=== PATIENT | female | born 1970 | race Caucasian/White ===

== ENCOUNTER 2016-11-07 22:43 | Emergency (ER) | payer BC ==
[~2016-11-07] VITALS: Ht 157.4 cm; Wt 81.6 kg
[~2016-11-07 22:43] MED LIST: ADVIL200 M1 PO; AMOXICILLIN500 MG PO; ATIVAN1 MG PO; BACTROBAN OINT22 GM PO; BIAXIN500 MG PO; BP MEDS; CATAFLAM50 MG PO; CIPRO500 MG PO; CLARITIN10 MG PO; FIORICET 325 MG1 TAB PO; FLEXERIL10 MG PO; FLEXERIL5 MG PO; FLONASE0.05 MG/AC NS; Fioricet 325 MG1 TAB PO; HYDR25T PO; HYDROCODONE BIT1 T11 PO; IMITREX25 MG PO; INDERAL LA60 M1 PO; KEFLEX500 MG PO; MEDROL DOSEPAK4 MG PO; MIDRIN (DURADR1 CAP PO; MOTRIN800 MG PO; Motrin,Rufen800 MG PO; NORVASC10 MG PO; PHENERGAN25 M1 PO; PREDNISONE50 MG PO; PROVENTIL0.09 MG/AC IH; ROBAXIN500 M1 PO; ROBAXIN500 MG PO; TORADOL10 MG PO; VICODIN 5-3001 EACH PO; VICODIN 5/500 505 MG PO; VICODIN 500 MG-1 TAB PO; VICODIN ES 7501 TAB PO; VICODIN1 TAB PO; ZESTRIL40 MG PO; ZOFRAN ODT4 MG PO; ZOFRAN ODT4 MG SL
[2016-11-08] MEDS ORDERED: Motrin,Rufen800 MG PO (00:19)
[2016-11-08] MEDS ORDERED: CYCLOBENZAPRINE5 M3 PO (00:19)
== END 2016-11-08 03:07 | disposition home or self-care (01) ==
LOC: ED 22:43
DX: S16.1XXA Strain of muscle, fascia and tendon at neck level, initial encounter (principal); R51 Headache; F17.200 Nicotine dependence, unspecified, uncomplicated; Z88.8 Allergy status to other drugs, medicaments and biological substances; X58.XXXA Exposure to other specified factors, initial encounter; Y93.89 Activity, other specified; Y92.9 Unspecified place or not applicable; Y99.9 Unspecified external cause status

== ENCOUNTER 2018-01-21 20:05 | Emergency (ER) | payer BC ==
[~2018-01-21] VITALS: Ht 157.4 cm; Wt 81.6 kg
[~2018-01-21 20:05] MED LIST changes: +CYCLOBENZAPRINE5 M3 PO
[2018-01-21] MEDS ORDERED: AMOXICILLIN500 M2 PO (20:56)
== END 2018-01-21 21:02 | disposition home or self-care (01) ==
LOC: ED 20:05
DX: J02.9 Acute pharyngitis, unspecified (principal); R19.7 Diarrhea, unspecified; Z88.8 Allergy status to other drugs, medicaments and biological substances; Z79.899 Other long term (current) drug therapy; Z98.890 Other specified postprocedural states

== ENCOUNTER 2019-01-13 21:52 | Emergency (ER) | payer BC ==
[~2019-01-13] VITALS: Ht 157.4 cm; Wt 86.2 kg
[~2019-01-13 21:52] MED LIST changes: +AMOXICILLIN500 M2 PO
== END 2019-01-13 22:57 | disposition home or self-care (01) ==
LOC: ED 21:52
DX: M25.531 Pain in right wrist (principal); Z79.899 Other long term (current) drug therapy; Z88.8 Allergy status to other drugs, medicaments and biological substances

== ENCOUNTER 2019-03-06 13:08 | Inpatient (IN) | payer BC ==
[~2019-03-06] VITALS: Ht 160 cm; Wt 83.6 kg
[2019-03-06 13:11] VITALS: BP 135/80
[2019-03-06] MEDS ORDERED: AUGMENTIN 875875 MG PO (13:23)
[2019-03-06] MEDS ORDERED: PREDNISONE10 MG PO (13:23)
[2019-03-06] MEDS ORDERED: BACLOFEN PO (13:23)
[2019-03-06 14:46] LABS: BASO # 0.1 10*3/uL (0.0-0.1); BASO % 0.8 % (0.0-1.0); EOS # 0.1 10*3/uL (0.0-0.4); EOS % 0.9 % (1.0-4.0); HEMATOCRIT 41.9 % (37.0-47.0); HEMOGLOBIN 14.4 g/dl (12.0-16.0); LYMPH # 3.5 10*3/uL (1.3-4.4); MEAN CELL VOLUME 105.3 fl (81.0-99.0); MEAN CORPUSCULAR HGB 36.2 pg (27.0-31.0); MEAN CORPUSCULAR HGB CONC 34.4 g/dl (33.0-37.0); MEAN PLATELET VOLUME 9.1 fl (9.6-12.3); MONO # 0.7 10*3/uL (0.1-1.0); MONO % 5.8 % (3.0-9.0); NEUT # 6.8 10*3/uL (2.3-7.9); NEUT % 60.8 % (47.0-73.0); PLATELET COUNT AUTOMATED 272 10*3/uL (130-400); RED BLOOD COUNT 3.98 10*6/uL (4.10-5.10); RED CELL DISTRI WIDTH 13.8 % (0-14.5); WHITE BLOOD COUNT 11.2 10*3/uL (4.8-10.8)
[2019-03-06 14:57] LABS: ACT PARTIAL THROMBO TIME 23.9 SECONDS (20.0-32.1); INTERNATIONAL NORM RATIO 0.9 (2.0-3.5)
[2019-03-06 15:04] LABS: ALBUMIN 3.1 gm/dl (3.1-4.5); ALKALINE PHOSPHATASE 103 U/L (45-117); BUN 10 mg/dl (7-24); CHLORIDE 97 mmol/L (98-107); CREATININE 0.68 mg/dL (0.55-1.02); LIPASE 243 U/L (73-393); SGOT/AST 109 IU/L (3-35); SGPT/ALT 70 U/L (12-78); SODIUM 133 mmol/L (136-145)
[2019-03-06 15:05] LABS: TROPONIN I < 0.015 ng/ml (<0.045)
--- NOTE | 2019-03-06 15:06 | NUR ---
ATIVAN IV GIVEN FOR PT NERVOUSNESS,SHAKINESS.--ELIZABET KING RN
--- NOTE | 2019-03-06 15:06 | NUR ---
NOTIFIED BY LAB PTS LACTIC ACID 3.0. DR YUNG NOTIFIED.
[2019-03-06 15:17] LABS: BILIRUBIN 2+ (NEGATIVE); BLOOD NEGATIVE (NEGATIVE); CLARITY CLOUDY (CLEAR); COLOR ORANGE (YELLOW); GLUCOSE TRACE (NEGATIVE); KETONE TRACE (NEGATIVE); LEUKO ESTERASE NEGATIVE (NEGATIVE); NITRITE POSITIVE (NEGATIVE); PH 5.5 (5.0-9.0); SPECIFIC GRAVITY 1.025 (1.005-1.030)
[2019-03-06 15:27] LABS: BACTERIA TRACE; EPITHELIAL CELLS 0-2; WBC 0-2 wbc/hpf (0-5)
[2019-03-06 17:18] VITALS: BP 119/74
--- NOTE | 2019-03-06 17:23 | NUR ---
NOTIFIED BY LAB PT LACTIC ACID 2.3. DR AGA LOPEZFIED.
--- NOTE | 2019-03-06 17:28 | NUR ---
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 ER DIRECTOR BEN WENT IN TO SPEAK WITH PT AND SHE HAS AGREE TO STAY HERE AND NOT SMOKE.--ELIZABET KING RN
--- NOTE | 2019-03-06 18:10 | NUR ---
Time: 1809 A 48 year old admitted to under services of EDD SIMON DO, Pt. arrived via stretcher from ER. Chief complaint: DIARRHEA FOR A LONG TIME. MEY GUZMÁN
[2019-03-06 18:12] VITALS: BP 140/77
--- NOTE | 2019-03-06 18:35 | NUR ---
Dr. Lerma was notified of consult and orders were recieved.
--- NOTE | 2019-03-06 19:55 | NUR ---
DR. MARTÍNEZ NOTIFIED OF CRITITCAL LACTIC ACID LEVEL 0F 4.0.
[2019-03-06 20:00] VITALS: BP 119/86
--- NOTE | 2019-03-06 21:00 | NUR ---
PATIENT MEDICATED WITH TYLENOL AND RESTORIL PER PRN ORDER FOR C/O PAIN AND INABILITY TO SLEEP. SEE EMAR. REINFORCED USE OF CALL LIGHT
--- NOTE | 2019-03-06 21:43 | NUR ---
DR. MARTÍNEZ NOTIFIED OF CRITICAL LACTIC ACID OF 2.4.
[2019-03-07] VITALS: BP 114/77
[2019-03-07 06:51] LABS: BASO # 0.1 10*3/uL (0.0-0.1); BASO % 0.8 % (0.0-1.0); EOS # 0.2 10*3/uL (0.0-0.4); EOS % 1.7 % (1.0-4.0); HEMATOCRIT 37.5 % (37.0-47.0); HEMOGLOBIN 12.8 g/dl (12.0-16.0); LYMPH % 42.3 % (27.0-41.0); MEAN CELL VOLUME 106.5 fl (81.0-99.0); MEAN CORPUSCULAR HGB 36.4 pg (27.0-31.0); MEAN CORPUSCULAR HGB CONC 34.1 g/dl (33.0-37.0); MEAN PLATELET VOLUME 9.2 fl (9.6-12.3); MONO # 0.4 10*3/uL (0.1-1.0); MONO % 4.6 % (3.0-9.0); NEUT # 4.7 10*3/uL (2.3-7.9); NEUT % 49.9 % (47.0-73.0); PLATELET COUNT AUTOMATED 248 10*3/uL (130-400); RED BLOOD COUNT 3.52 10*6/uL (4.10-5.10); WHITE BLOOD COUNT 9.5 10*3/uL (4.8-10.8)
[2019-03-07 07:22] LABS: ALBUMIN 2.7 gm/dl (3.1-4.5); BUN 10 mg/dl (7-24); CHLORIDE 99 mmol/L (98-107); CREATININE 0.57 mg/dL (0.55-1.02); POTASSIUM 3.1 mmol/L (3.5-5.1); SGOT/AST 65 IU/L (3-35); SGPT/ALT 54 U/L (12-78); SODIUM 134 mmol/L (136-145)
[2019-03-07 07:25] LABS: ALKALINE PHOSPHATASE 82 U/L (45-117); CHOLESTEROL 210 mg/dL (<200); HDL CHOLESTEROL 68 mg/dl (40-60); LDL CHOLESTEROL 122 mg/dL (9-159); PHOSPHOROUS 3.9 mg/dL (2.5-4.9); TRIGLYCERIDES 102 mg/dl (<150); VLDL CHOLESTEROL 20 mg/dL (6-40)
--- NOTE | 2019-03-07 07:53 | NUR ---
Awake and alert. States shoulders are tense. Requesting just 1 more shot of morphine. Suggested to request from Dr. Mercer on rounding, pt. is ok with this.
--- NOTE | 2019-03-07 07:57 | NUR ---
Dr. Gan aware of hypokalemia.
[2019-03-07 08:00] VITALS: BP 126/87
--- NOTE | 2019-03-07 09:00 | NUR ---
Construction Executive in to talk to patient. Patient states lives at home with mom. There are few steps in the home. Physician: shayna sheffield Pharmacy: [facility] health services: none Patient's level of ADLs: INDEPENDENT Patient has working utilities: all working DME: none Follow-up physician's appointment after d/c: will be made by hospitalist nurse director upon discharge Does patient want to access PORTAL?: no Discharge plan discussed with patient, mom present, she states she lives at home with her mom, she is indepenedent in adls and ambulation, works, drives, she will return home when medically stable and denies any home needs. KILO SANTOS
[2019-03-07 12:00] VITALS: BP 110/77
[2019-03-07 16:00] VITALS: BP 108/72
--- NOTE | 2019-03-07 17:35 | NUR ---
Mother and pt. both notified of OR time. Pt. voiced concern over time frame stating going that long w/o food will cause a migraine.
[2019-03-07 20:00] VITALS: BP 114/72
[2019-03-08] VITALS (7 sets, daily range): BP systolic 110–143; BP diastolic 69–99
--- NOTE | 2019-03-08 00:49 | NUR ---
PATIENT MEDICATED WITH MORPHINE PER ONE TIME ORDER FOR C/O HEADACHE /MIGRAINE. RATED PAIN A 9/10 WITH 10 BEING THE WORST. SEE EMAR. REINFORCED USE OF CALL LIGHT.
--- NOTE | 2019-03-08 06:15 | NUR ---
FLEETS ENEMA GIVEN. TAP WATER ENEMA GIVEN. RESULTS CLEAR LIGHT YELLOW LIQUID.
[2019-03-08 06:16] LABS: BASO # 0.1 10*3/uL (0.0-0.1); BASO % 0.7 % (0.0-1.0); EOS # 0.2 10*3/uL (0.0-0.4); HEMATOCRIT 38.2 % (37.0-47.0); HEMOGLOBIN 12.7 g/dl (12.0-16.0); LYMPH # 3.8 10*3/uL (1.3-4.4); LYMPH % 38.1 % (27.0-41.0); MEAN CELL VOLUME 106.7 fl (81.0-99.0); MEAN CORPUSCULAR HGB 35.5 pg (27.0-31.0); MEAN CORPUSCULAR HGB CONC 33.2 g/dl (33.0-37.0); MEAN PLATELET VOLUME 9.2 fl (9.6-12.3); MONO # 0.6 10*3/uL (0.1-1.0); MONO % 6.1 % (3.0-9.0); NEUT # 5.3 10*3/uL (2.3-7.9); NEUT % 52.3 % (47.0-73.0); PLATELET COUNT AUTOMATED 243 10*3/uL (130-400); RED BLOOD COUNT 3.58 10*6/uL (4.10-5.10); RED CELL DISTRI WIDTH 13.8 % (0-14.5); WHITE BLOOD COUNT 10.1 10*3/uL (4.8-10.8)
[2019-03-08 06:40] LABS: ALBUMIN 2.8 gm/dl (3.1-4.5); BUN 4 mg/dl (7-24); CHLORIDE 101 mmol/L (98-107); POTASSIUM 2.9 mmol/L (3.5-5.1); SODIUM 136 mmol/L (136-145)
[2019-03-08 06:44] LABS: ALKALINE PHOSPHATASE 83 U/L (45-117); CREATININE 0.44 mg/dL (0.55-1.02); PHOSPHOROUS 3.7 mg/dL (2.5-4.9); SGOT/AST 58 IU/L (3-35); SGPT/ALT 54 U/L (12-78); TOTAL PROTEIN 5.9 gm/dL (6.4-8.2)
--- NOTE | 2019-03-08 09:00 | NUR ---
case management visits with patient, she will return home when medically stable she will be having testing done today, no other needs at this time
--- NOTE | 2019-03-08 11:25 | NUR ---
OFF FLOOR FOR MRI. IV ATIVEN GIVEN AT THIS TIME FOR CLAUSTROPHOBIA. SEE MAR.
[2019-03-08] MEDS ORDERED: NATURE'S BLEND F1 MG PO (15:19)
[2019-03-08] MEDS ORDERED: VITAMIN D5000 UNI1 PO (15:19)
[2019-03-08] MEDS ORDERED: CREON 3000 PO (16:31)
--- NOTE | 2019-03-08 16:47 | NUR ---
REFUSED POTASSIUM. EMXPLAINED IMPORTANCE/EDUCATED ON NEED. STILL REFUSED "BECAUSE THE DOCTORS SAID I WAS DISCHARGED."
--- NOTE | 2019-03-08 18:10 | NUR ---
Discharge instructions reviewed with patient/family. Patient receptive and verbalizes understanding. Follow-up care arranged. Written instructions given to patient/family. IRENE MOSHER
== END 2019-03-08 18:10 | disposition home or self-care (01) | DRG 690 ==
LOC: ED 13:08 → 4E 16:55 → EDHOLD 16:55 → 4E 17:22
PROVIDERS: Emergency Medicine; Internal Medicine; ADMIT Internal Medicine
PROC: 0DBM8ZX Excision of Descending Colon, Via Natural or Artificial Opening Endoscopic, Diagnostic (ICD-10-PCS; principal; 2019-03-08)
DX: N39.0 Urinary tract infection, site not specified (principal); E87.2 Acidosis; E87.1 Hypo-osmolality and hyponatremia; R19.7 Diarrhea, unspecified; D72.829 Elevated white blood cell count, unspecified; E87.8 Other disorders of electrolyte and fluid balance, not elsewhere classified; D75.89 Other specified diseases of blood and blood-forming organs; R73.9 Hyperglycemia, unspecified; F10.20 Alcohol dependence, uncomplicated; R74.0 Nonspecific elevation of levels of transaminase and lactic acid dehydrogenase [LDH]; E66.9 Obesity, unspecified; I10 Essential (primary) hypertension; G43.909 Migraine, unspecified, not intractable, without status migrainosus; Z82.49 Family history of ischemic heart disease and other diseases of the circulatory system; Z80.8 Family history of malignant neoplasm of other organs or systems; Z79.899 Other long term (current) drug therapy; Z72.0 Tobacco use; Z88.8 Allergy status to other drugs, medicaments and biological substances; Z68.32 Body mass index [BMI] 32.0-32.9, adult

== ENCOUNTER → 2020-03-10 | Outpatient (CLI) | payer BC ==
[~2020-03-10] MED LIST changes: +AUGMENTIN 875875 MG PO; +BACLOFEN PO; +CREON 3000 PO; +NATURE'S BLEND F1 MG PO; +PREDNISONE10 MG PO; +VITAMIN D5000 UNI1 PO
== END | disposition home or self-care (01) ==
LOC: COVID19 11:53
DX: Z20.828 Contact with and (suspected) exposure to other viral communicable diseases (principal)

== ENCOUNTER 2020-10-06 18:24 | Emergency (ER) | payer BC ==
[~2020-10-06] VITALS: Wt 90.7 kg
== END 2020-10-06 20:31 | disposition left against medical advice (07) ==
LOC: ED 18:24
DX: G43.909 Migraine, unspecified, not intractable, without status migrainosus (principal); Z53.21 Procedure and treatment not carried out due to patient leaving prior to being seen by health care provider

== ENCOUNTER 2021-01-08 03:24 | Emergency (ER) | payer BC ==
[~2021-01-08] VITALS: Ht 152.4 cm; Wt 90.7 kg
== END 2021-01-08 04:27 | disposition home or self-care (01) ==
LOC: ED 03:24
DX: R51.9 Headache, unspecified (principal); R21 Rash and other nonspecific skin eruption; M54.2 Cervicalgia; Z88.8 Allergy status to other drugs, medicaments and biological substances; Z79.899 Other long term (current) drug therapy; Z87.891 Personal history of nicotine dependence

== ENCOUNTER 2021-02-04 17:45 | Emergency (ER) | payer BC ==
[2021-02-05] MEDS ORDERED: HYDROCODONE-AC1 EAC1 PO (01:14)
== END 2021-02-05 01:44 | disposition home or self-care (01) ==
LOC: ED 17:45
DX: S82.831A Other fracture of upper and lower end of right fibula, initial encounter for closed fracture (principal); F17.200 Nicotine dependence, unspecified, uncomplicated; Z88.8 Allergy status to other drugs, medicaments and biological substances; Z79.899 Other long term (current) drug therapy; W18.40XA Slipping, tripping and stumbling without falling, unspecified, initial encounter; Y93.89 Activity, other specified; Y92.89 Other specified places as the place of occurrence of the external cause; Y99.8 Other external cause status

== ENCOUNTER → 2021-04-22 | Outpatient (CLI) | payer BC ==
[~2021-04-22] MED LIST changes: +HYDROCODONE-AC1 EAC1 PO
== END | disposition home or self-care (01) ==
LOC: COVID19 15:36
PROVIDERS: ATTEND Internal Medicine
DX: Z11.52 Encounter for screening for COVID-19 (principal)

== ENCOUNTER 2021-08-26 02:43 | Emergency (ER) | payer BC ==
[~2021-08-26] VITALS: Ht 152.4 cm; Wt 95.3 kg
== END 2021-08-26 03:28 | disposition home or self-care (01) ==
LOC: ED 02:43
DX: G43.909 Migraine, unspecified, not intractable, without status migrainosus (principal); Z88.8 Allergy status to other drugs, medicaments and biological substances; Z79.899 Other long term (current) drug therapy; Z98.890 Other specified postprocedural states

== ENCOUNTER → 2022-05-20 | Outpatient (CLI) | payer BC | END | disposition home or self-care (01) | LOC: COVID19 09:19 | PROVIDERS: ATTEND Internal Medicine | DX: Z20.822 Contact with and (suspected) exposure to COVID-19 (principal) ==

== ENCOUNTER 2022-06-08 00:55 | Emergency (ER) | payer BC ==
[~2022-06-08] VITALS: Ht 157.4 cm; Wt 104.3 kg
[2022-06-08] MEDS ORDERED: HYDROCODONE-AC1 EACH PO (01:09)
== END 2022-06-08 05:03 | disposition home or self-care (01) ==
LOC: ED 00:55
DX: G43.909 Migraine, unspecified, not intractable, without status migrainosus (principal); Z88.8 Allergy status to other drugs, medicaments and biological substances; I10 Essential (primary) hypertension; E66.9 Obesity, unspecified; Z68.34 Body mass index [BMI] 34.0-34.9, adult; Z98.890 Other specified postprocedural states; F17.200 Nicotine dependence, unspecified, uncomplicated

== ENCOUNTER 2022-08-03 21:24 | Emergency (ER) | payer BC ==
[~2022-08-03] VITALS: Ht 152.4 cm; Wt 99.6 kg
[~2022-08-03 21:24] MED LIST changes: +HYDROCODONE-AC1 EACH PO
== END 2022-08-03 22:46 | disposition home or self-care (01) ==
LOC: ED 21:24
DX: G43.909 Migraine, unspecified, not intractable, without status migrainosus (principal); Z88.8 Allergy status to other drugs, medicaments and biological substances; Z79.899 Other long term (current) drug therapy; F17.200 Nicotine dependence, unspecified, uncomplicated

== ENCOUNTER 2022-08-31 22:26 | Emergency (ER) | payer BC ==
[~2022-08-31] VITALS: Ht 157.4 cm; Wt 88.5 kg
== END 2022-09-01 01:25 | disposition home or self-care (01) ==
LOC: ED 22:26
DX: G43.909 Migraine, unspecified, not intractable, without status migrainosus (principal); H53.141 Visual discomfort, right eye; I10 Essential (primary) hypertension; R73.9 Hyperglycemia, unspecified; E87.8 Other disorders of electrolyte and fluid balance, not elsewhere classified; E87.1 Hypo-osmolality and hyponatremia; D64.9 Anemia, unspecified; Z98.890 Other specified postprocedural states; Z88.8 Allergy status to other drugs, medicaments and biological substances; Z87.891 Personal history of nicotine dependence

== ENCOUNTER 2022-10-04 21:57 | Emergency (ER) | payer BC ==
[~2022-10-04] VITALS: Ht 162.5 cm; Wt 95.3 kg
== END 2022-10-05 03:15 | disposition home or self-care (01) ==
LOC: ED 21:57
DX: M54.41 Lumbago with sciatica, right side (principal); M79.604 Pain in right leg; R73.9 Hyperglycemia, unspecified; E87.8 Other disorders of electrolyte and fluid balance, not elsewhere classified; E87.1 Hypo-osmolality and hyponatremia; D64.9 Anemia, unspecified; G43.909 Migraine, unspecified, not intractable, without status migrainosus; I10 Essential (primary) hypertension; Z88.8 Allergy status to other drugs, medicaments and biological substances; Z98.890 Other specified postprocedural states

== ENCOUNTER 2022-11-16 19:25 | Emergency (ER) | payer BC ==
[~2022-11-16] VITALS: Ht 162.5 cm; Wt 102.1 kg
[2022-11-16] MEDS ORDERED: METHOCARBAMOL500 M1 PO (22:00)
[2022-11-16] MEDS ORDERED: PREDNISONE20 M1 PO (22:00)
== END 2022-11-16 22:15 | disposition home or self-care (01) ==
LOC: ED 19:25
DX: M54.31 Sciatica, right side (principal); M79.604 Pain in right leg; I10 Essential (primary) hypertension; G43.909 Migraine, unspecified, not intractable, without status migrainosus; Z88.8 Allergy status to other drugs, medicaments and biological substances; Z98.890 Other specified postprocedural states; Z87.891 Personal history of nicotine dependence

== ENCOUNTER 2022-12-16 19:48 | Emergency (ER) | payer BC ==
[~2022-12-16] VITALS: Ht 152.4 cm; Wt 97.5 kg
[~2022-12-16 19:48] MED LIST changes: +METHOCARBAMOL500 M1 PO; +PREDNISONE20 M1 PO
[2022-12-16] MEDS ORDERED: CYCLOBENZAPRINE10 MG PO (20:32)
[2022-12-16] MEDS ORDERED: PREDNISONE50 MG PO (20:32)
== END 2022-12-16 20:48 | disposition home or self-care (01) ==
LOC: ED 19:48
DX: M54.50 Low back pain, unspecified (principal); F17.200 Nicotine dependence, unspecified, uncomplicated; I10 Essential (primary) hypertension; Z88.8 Allergy status to other drugs, medicaments and biological substances; Z79.899 Other long term (current) drug therapy; Z98.890 Other specified postprocedural states

== ENCOUNTER 2023-01-27 13:21 | Emergency (ER) | payer OTHER, BC ==
[~2023-01-27] VITALS: Wt 97.5 kg
[~2023-01-27 13:21] MED LIST changes: +CYCLOBENZAPRINE10 MG PO
[2023-01-27] MEDS ORDERED: CYCLOBENZAPRINE10 MG PO (14:49)
== END 2023-01-27 14:59 | disposition home or self-care (01) ==
LOC: ED 13:21
DX: S43.401A Unspecified sprain of right shoulder joint, initial encounter (principal); S63.501A Unspecified sprain of right wrist, initial encounter; I10 Essential (primary) hypertension; G43.909 Migraine, unspecified, not intractable, without status migrainosus; Z88.8 Allergy status to other drugs, medicaments and biological substances; Z98.890 Other specified postprocedural states; W19.XXXA Unspecified fall, initial encounter; Y93.89 Activity, other specified; Y92.89 Other specified places as the place of occurrence of the external cause; Y99.8 Other external cause status

== ENCOUNTER 2023-03-18 00:23 | Emergency (ER) | payer BC ==
[~2023-03-18] VITALS: Ht 157.4 cm; Wt 97.5 kg
== END 2023-03-18 01:02 | disposition home or self-care (01) ==
LOC: ED 00:23
DX: Z48.00 Encounter for change or removal of nonsurgical wound dressing (principal); I10 Essential (primary) hypertension; G43.909 Migraine, unspecified, not intractable, without status migrainosus; Z88.8 Allergy status to other drugs, medicaments and biological substances; Z98.890 Other specified postprocedural states

== ENCOUNTER 2023-08-05 22:44 | Emergency (ER) | payer BC ==
[~2023-08-05] VITALS: Ht 160 cm; Wt 113.4 kg
[2023-08-05] MEDS ORDERED: Dexamethasone Sodium Phospha 20 MG/5 ML VIAL IM ONE (23:25)
[2023-08-05] MEDS ORDERED: Ketorolac Tromethamine 60 MG/2 ML VIAL IM ONE (23:25)
[2023-08-06] MEDS ORDERED: CYCLOBENZAPRINE5 M3 PO (00:33)
[2023-08-06] MEDS ORDERED: MELOXICAM15 MG PO (00:33)
== END 2023-08-06 00:38 | disposition home or self-care (01) ==
LOC: ED 22:44
DX: M54.9 Dorsalgia, unspecified (principal); I10 Essential (primary) hypertension; G43.909 Migraine, unspecified, not intractable, without status migrainosus; Z88.8 Allergy status to other drugs, medicaments and biological substances; Z98.890 Other specified postprocedural states; F17.200 Nicotine dependence, unspecified, uncomplicated

== ENCOUNTER 2024-01-17 16:00 | Emergency (ER) | payer BC ==
[~2024-01-17 16:00] MED LIST changes: +MELOXICAM15 MG PO
[2024-01-17 17:09] LABS: BASO # 0.1 10*3/uL (0.0-0.1); BASO % 0.9 % (0.0-1.0); EOS # 0.2 10*3/uL (0.0-0.4); EOS % 1.4 % (1.0-4.0); HEMATOCRIT 46.3 % (37.0-47.0); LYMPH % 28.4 % (27.0-41.0); MEAN CELL VOLUME 95.5 fl (81.0-99.0); MEAN CORPUSCULAR HGB 30.7 pg (27.0-31.0); MEAN CORPUSCULAR HGB CONC 32.2 g/dl (33.0-37.0); MEAN PLATELET VOLUME 8.9 fl (9.6-12.3); MONO # 0.8 10*3/uL (0.1-1.0); MONO % 5.9 % (3.0-9.0); NEUT # 8.6 10*3/uL (2.3-7.9); PLATELET COUNT AUTOMATED 370 10*3/uL (130-400); RED BLOOD COUNT 4.85 10*6/uL (4.10-5.10); RED CELL DISTRI WIDTH 14.6 % (0-14.5); WHITE BLOOD COUNT 13.9 10*3/uL (4.8-10.8)
[2024-01-17 17:34] LABS: ALKALINE PHOSPHATASE 102 U/L (46-116); BUN 10 mg/dl (9-23); CHLORIDE 108 mmol/L (98-107); POTASSIUM 4.2 mmol/L (3.4-5.1); SGPT/ALT 11 U/L (5-49); TOTAL PROTEIN 6.9 gm/dL (6.0-8.0)
[2024-01-17] MEDS ORDERED: Ketorolac Tromethamine 60 MG/2 ML VIAL IM ONE (17:40)
[2024-01-17] MEDS ORDERED: Cyclobenzaprine Hydrochlorid 10 MG TAB PO ONE (17:45)
== END 2024-01-17 18:49 | disposition home or self-care (01) ==
LOC: ED 16:00
DX: G89.29 Other chronic pain (principal); M54.6 Pain in thoracic spine; I10 Essential (primary) hypertension; G43.909 Migraine, unspecified, not intractable, without status migrainosus; F17.200 Nicotine dependence, unspecified, uncomplicated; Z88.8 Allergy status to other drugs, medicaments and biological substances; Z98.890 Other specified postprocedural states

== ENCOUNTER 2024-04-12 18:07 | Emergency (ER) | payer OTHER, BC ==
[~2024-04-12] VITALS: Ht 152.4 cm; Wt 117.9 kg
[2024-04-12] MEDS ORDERED: DIAZEPAM 5 MG TAB PO ONE (18:15)
[2024-04-12] MEDS ORDERED: Acetaminophen/Oxycodone 5 MG/325 MG TABLET PO ONE (18:15)
[2024-04-12] MEDS ORDERED: VALIUM5 MG PO (18:40)
[2024-04-12] MEDS ORDERED: IBU800 M2 PO (18:40)
== END 2024-04-12 18:51 | disposition home or self-care (01) ==
LOC: ED 18:07
DX: M54.50 Low back pain, unspecified (principal); I10 Essential (primary) hypertension; G43.909 Migraine, unspecified, not intractable, without status migrainosus; F17.200 Nicotine dependence, unspecified, uncomplicated; Z88.8 Allergy status to other drugs, medicaments and biological substances; Z98.890 Other specified postprocedural states; V43.52XA Car driver injured in collision with other type car in traffic accident, initial encounter; Y93.89 Activity, other specified; Y92.410 Unspecified street and highway as the place of occurrence of the external cause; Y99.8 Other external cause status